=== PATIENT | male | born 1955 | race Caucasian/White ===

== ENCOUNTER 2024-02-22 22:09 | Emergency (ER) | payer SELFPAY ==
[2024-02-22 22:11] VITALS: BP 120/73
--- NOTE | 2024-02-22 22:54 | ED.GENMED ---
History of Present Illness
General
Chief Complaint: Fall
Source: patient and ambulance crew
Time Seen by Provider: 02/22/24 22:27
Nursing documentation reviewed up to this point in time: agreed with
History of Present Illness
History of Present Illness:
Pleasant 68-year-old male that presents the emergency department after a fall. Patient was sitting in his wheelchair at reached over to pick something off the floor. He tumbled out of his wheelchair. He states that he struck his head on the
concrete. He does complain of slight head pain but denies headache. Patient resides at [facility]. He does have a history of COPD and requires oxygen. Per EMS, patient has not been compliant with his O2. Patient denies any other complaints.
Denies any musculoskeletal pain. He has had a recent fall and had Steri-Strips applied to his elbow.
Review of Systems
Review of Systems
Allergies reviewed?: Yes
Other source history: family
All Other Systems: ROS reviewed and negative except as documented in HPI and ROS
Constitutional: Reports no symptoms
EENT: Reports no symptoms
Respiratory: Reports no symptoms
Cardiac: Reports no symptoms
ABD/GI: Reports no symptoms
: Reports no symptoms
Musculoskeletal: Reports no symptoms
Skin: Reports no symptoms
Neurological: Reports no symptoms
Endocrine: Reports no symptoms
Hematologic/Lymphatic: Reports no symptoms
Psychiatric: Reports anxiety
Phy Exam
General Physical Exam
General Presentation: well appearing and no apparent distress
General Skin: warm and dry
General Habitus: normal
General Mental: alert
General Hydration: appears well hydrated
ENT Exam
ENT Exam: EOMI, pharynx normal, neck supple and normocephalic
Eye Exam
Eye Exam: PERRL, cornea clear and conjunctiva normal
Cardiovascular Exam
Cardiovascular Exam: regular rate/rhythm, no edema, no murmur and normal peripheral pulses
Pulmonary Exam
Pulmonary Exam: lungs clear, no respiratory distress, no rales, no crackles, no rhonchi, no stridor, no wheezing and no cough
Gastrointestinal Exam
Gastrointestinal Exam: normal bowel sounds, non tender, soft, no organomegaly, no pulsatile mass and non distended
Neurological Exam
Neurological Exam: alert, oriented x3, no motor deficits and speech normal
Musculoskeletal Exam
Musculoskeletal Exam: full ROM and no edema
Skin Exam
Skin Exam: normal color, warm/dry, no rash, no petechia and other (Well-healing wound left elbow closed with Steri-Strips at some point prior to sumaya's visit)
Psychiatric Exam
Psychiatric Exam: normal mood/affect
Course
Orders/Labs/Results
Orders:
Orders
02/22/24 22:27
CT Head W/o Iv Contrast Urgent
Comment:
Reason For Exam: fall
Vital Signs
Initial and Last Documented VS:
Initial Vital Signs
Pulse Resp BP Pulse Ox
76 18 120/73 95
02/22/24 22:11 02/22/24 22:11 02/22/24 22:11 02/22/24 22:11
Last Documented Vital Signs
Pulse Resp BP Pulse Ox
76 18 120/73 95
02/22/24 22:11 02/22/24 22:11 02/22/24 22:11 02/22/24 22:11
*Critical Care Note
Total Time (30-74mins, 75-104mins- exclusive of procedures): Not Applicable
Update Note
Update Note:
Additional Information (per [facility] Radiologist): Fall from wheelchair
CT head
Comparison: None
IMPRESSION:
no evidence for traumatic injury
No acute intracranial findings
Global cerebral volume loss and mild chronic microvascular changes in periventricular white matter
Right maxillary sinus disease incidentally noted
Report faxed directly to ER at 11:24 PM ET
ED Attending Note
-
Portions of this chart may have been created with voice recognition software.� Occasional wrong word or��sound alike� substitutions may have occurred due to the inherent limitations of voice recognition software.
Discharge Plan
Departure
Patient Disposition: Long Term/SNF
Date of Disposition: 02/23/24
Time of Disposition: 00:22
Patient with high blood pressure during this ER visit?: Yes
Condition: Good
Discharge Problem:
Fall, Head injury
Instructions: Head Injury in Adults (DC), Preventing falls in adults, BLOOD PRESSURE
Prescriptions:
No Action
nicotine 14 mg/24 hr Patch 24 Hour
14 mg TRANSDERMAL DAILY
olanzapine 2.5 mg Tablet
2.5 mg PO Q12H
magnesium hydroxide [Milk of Magnesia] 400 mg/5 mL Suspension
30 ml PO DAILYPRN PRN (Reason: if no bm after 3 days)
carbamazepine 200 mg Tablet Extended Release 12 Hr
400 mg PO DAILY
carbamazepine 200 mg Tablet Extended Release 12 Hr
600 mg PO HS
bisacodyl [Dulcolax (bisacodyl)] 10 mg Suppository
10 mg OK DAILYPRN PRN (Reason: if no bm in 24hrs after MOM)
lidocaine 5 % Adhesive Patch,Medicated
1 patch TOPICAL DAILY
Fleet Enema 19-7 gram/118 mL Enema
118 ml OK DAILYPRN PRN (Reason: if no bm in 24hrs after dulcolax)
Santyl 250 unit/gram Ointment
1 applic TOPICAL PRN PRN (Reason: soilage/sacral wound)
Santyl 250 unit/gram Ointment
1 applic TOPICAL DAILY
albuterol sulfate 90 mcg/actuation Hfa Aerosol Inhaler
2 inh INHALATION R Q4HPRN PRN (Reason: wheezing)
lithium carbonate 300 mg Tablet
300 mg PO BID
cyclobenzaprine 5 mg Tablet
5 mg PO TID
quetiapine 50 mg Tablet
50 mg PO HS
tramadol 50 mg Tablet
50 mg PO Q8HPRN PRN (Reason: moderate pain)
Trelegy Ellipta 100-62.5-25 mcg Blister With Device
1 inh INHALATION R DAILY
Referrals:
Joe Urena MD [Family Provider] -
Activity Restrictions/Additional Instructions:
It was a pleasure meeting you and taking part in your care. We hope for your continued healing and wellness.
Please read discharge instructions in their entirety. However, they are for general education and may not describe your exact diagnosis at discharge. Information on your ER visit and medical conditions were discussed with you along with appropriate
follow up information...
If indicated, please take your medications as instructed and indicated on discharge paperwork.
Please schedule a follow up appointment as directed. Call to schedule an appointment
Please return to the emergency department with ANY change in, persisting, or worsening of symptoms. If any of your symptoms do not improve, or persist, or become more severe within 6-12 hours, please return to the emergency department for further
care.
Please return to the emergency department if you develop a headache, neck pain/stiffness, fever greater than 100.4F, chest pain, shortness of breath, persistent nausea, vomiting, slurred speech, difficulty walking, numbness/tingling, weakness, signs
of infection or any other symptoms that are worrisome to you.
If you have any questions or concerns please do not hesitate to call the Hospital at or E-mail me directly at [email or web address]
Interventions
Interventions:
*Risk Screen - Suicide Last Done: 02/22/24 22:49
*General Assessment Last Done: 02/22/24 22:49
*Neglect/Abuse Screening Last Done: 02/22/24 22:49
*ED COVID-19 Vaccine History Last Done: 02/22/24 22:49
ED-Musculoskeletal Assessment Last Done: 02/22/24 22:48
ED- Neurological Assessment Last Done: 02/22/24 22:20
ED-Skin Assessment Last Done: 02/22/24 22:48
Discharge Date and Time
Print Language: CHINESE
== END 2024-02-23 02:57 ==
LOC: EMR 22:09
PROVIDERS: EMERGENCY PHYSICIAN Student in an Organized Health Care Education/Training Program; FAMILY PHYSICIAN Internal Medicine
DX: S09.90XA Unspecified injury of head, initial encounter (principal); W05.0XXA Fall from non-moving wheelchair, initial encounter; J44.9 Chronic obstructive pulmonary disease, unspecified
CPT/HCPCS: 99284; 70450